=== PATIENT | female | born 1995 | race Caucasian/White ===

== ENCOUNTER 2020-08-12 22:21 | Emergency (ER) | payer OTHER ==
[~2020-08-12] VITALS: Ht 160 cm; Wt 59.9 kg
[2020-08-12 22:35] VITALS: BP 112/77
--- NOTE | 2020-08-12 22:40 | NUR ---
PT TOOK IBUPROFEN 600MG 1730. LAST DOSE NO RELIEF.
--- NOTE | 2020-08-12 23:15 | NUR ---
PATIENT AMBULATED TO BED 10 WITH STEADY GAIT.
--- NOTE | 2020-08-12 23:15 | NUR ---
PATIENT 25 Y/O FEMALE BIB SELF FOR C/O L HIP PAIN 10/10 PAIN X 2 WEEKS. PER PATIENT WENT TO URGENT CARE AND WAS DIAGNOSED WITH "SIATIC PAIN." PATIENT STATES NO OTC MEDICATIONS ARE HELPFUL. PATIENT STATES PAIN BEGINS AT L HIP AND RADIATES DOWN L LEG. MEDHX: NONE ALLERGIES: NKA
--- NOTE | 2020-08-12 23:28 | NUR ---
XRAY AT BEDSIDE.
--- NOTE | 2020-08-12 23:28 | NUR ---
PATIENT UNABLE TO GIVE URINE SAMPLE AT THIS TIME. PATIENT GAVE PERMISSION TO HAVE XRAY DONE PRIOR TO URINE HCG RESULTS. ERMD MADE AWARE. NO NEW OEDERS GIVEN AT THIS TIME.
--- NOTE | 2020-08-12 23:43 | NUR ---
PATIENT AMBULATED TO RESTROOM FOR UA SAMPLE.
--- NOTE | 2020-08-12 23:49 | NUR ---
Dr. Fabian examining patient.
[2020-08-12] MEDS ORDERED: KETOROLAC 30 MG/ML VIAL IM ONE (23:55)
[2020-08-12] MEDS ORDERED: CYCLOBENZAPRINE 10 MG TAB PO ONE (23:55)
[2020-08-13] MEDS ORDERED: HYDROcodone/APAP 5/325 MG 1 TAB TAB PO ONE (00:55)
[2020-08-13] MEDS ORDERED: CYCL1POW PO (01:25)
[2020-08-13] MEDS ORDERED: LID5T TP (01:25)
[2020-08-13] MEDS ORDERED: DICL1GEL19 TP (01:25)
--- NOTE | 2020-08-13 01:34 | NUR ---
Patient is currently ambulatory with steady gait, able to walk unassisted. Positive gag reflex. Alert and oriented. Is not driving self for discharge out of facility. NADR to [place].
--- NOTE | 2020-08-13 01:35 | NUR ---
Patient discharged with v/s stable. Written and verbal after care instructions given and explained. Patient alert, oriented and verbalized understanding of instructions. Ambulatory with steady gait. All questions addressed prior to discharge. ID band removed. Patient advised to follow up with PMD. Rx of VOLTAREN, LIDODERM PATCH, CYCLOBENZAPRINE given. Patient educated on indication of medication including possible reaction and side effects. Opportunity to ask questions provided and answered.
[2020-08-13 01:42] VITALS: BP 114/72
== END 2020-08-13 01:35 | disposition home or self-care (01) ==
LOC: MED 22:21
DX: M54.32 Sciatica, left side (principal); Z79.899 Other long term (current) drug therapy
CPT/HCPCS: 73502; 81002; 81025; 96372; 99283; J1885